=== PATIENT | male | born 1985 | race Caucasian/White ===

== ENCOUNTER 2017-03-30 11:41 | Emergency (ER) | payer SELFPAY ==
[~2017-03-30] VITALS: Ht 190.5 cm; Wt 84.0 kg
[2017-03-30 11:51] VITALS: BP 132/64; PULSE 105; RESP 20; TEMP 98.2; O2SAT 96
[2017-03-30] MEDS ORDERED: SODIUM CHLOR 0.9% 1000 ML INJ 1,000 ML IV ONE (11:52)
[2017-03-30] MEDS ORDERED: LORazepam 2 MG/ML VIAL IV PUSH ONE (12:00)
[2017-03-30] MEDS ORDERED: SODIUM CHLORIDE 0.9% FLUSH 10 ML FLUSH IVF PRN (12:00)
[2017-03-30 12:16] LABS: AUTOMATED NEUTROPHIL # 7.3 TH/MM3 (1.8-7.7); BASOPHIL # 0.1 TH/MM3 (0-0.2); BASOPHIL % 0.7 % (0.0-2.0); EOSINOPHIL % 0.4 % (0.0-4.0); HEMATOCRIT 44.2 % (39.0-51.0); HEMO FLAGS DIFF FINAL; LYMPH % 12.8 % (9.0-44.0); LYMPHOCYTE # 1.2 TH/MM3 (1.0-4.8); MEAN CELL VOLUME 99.9 FL (80.0-100.0); MEAN CORPUSCULAR HEMOGLOBIN 33.9 PG (27.0-34.0); MONO % 8.3 % (0.0-8.0); NEUT % 77.8 % (16.0-70.0); PLATELET COUNT 240 TH/MM3 (150-450); RED BLOOD COUNT 4.42 MIL/MM3 (4.50-5.90); RED CELL DISTRIBUTION WIDTH 12.6 % (11.6-17.2); WHITE BLOOD COUNT 9.4 TH/MM3 (4.0-11.0)
[2017-03-30] MEDS ORDERED: ADDE20 PO (12:19)
--- NOTE | 2017-03-30 12:20 | PD ---
HPI Chief Complaint: Seizure Time Seen by Provider: 11:50 Travel History International Travel<30 days: No Contact w/Intl Traveler<30days: No Traveled to known affect area: No History of Present Illness HPI Patient is a 31-year-old male presenting to the emergency department for evaluation after a witnessed seizure. Patient was at work, coworkers heard a thump and palpation on the floor actively seizing. The seizure lasted for approximately 45 seconds, when EMS arrived on scene patient was postictal and disoriented. Patient has a history of seizure disorder but it's been several years since this occurred. He reported that he felt off before the seizure occurred but otherwise had been feeling well. He denies any illicit drug use, he is not on any medications for the seizure. He denies any headache, chest pain, nausea, vomiting, abdominal pain at this time. [facility] Past Medical History ADHD: Yes Diminished Hearing: No Neurologic: Yes (TREMORS ON PROPANOLOL) Seizures: Yes Tetanus Vaccination: > 5 Years Influenza Vaccination: No Past Surgical History Other Surgery: Yes (RHINOPLASTY, R 5TH DIGIT REPAIR) Social History Alcohol Use: Yes (OCC) Tobacco Use: No Substance Use: No Allergies-Medications (Allergen,Severity, Reaction): Coded Allergies: Codeine (Verified Allergy, Severe, 03/30/17) Reported Meds & Prescriptions Reported Meds & Active Scripts Active Reported Adderall (Amphetamine-Dextroamphetamine) 20 Mg Tab 20 Mg PO DAILY Avoid late evening doses. Space doses at least 4 to 6 hours if more than once/day dosing. Review of Systems Except as stated in HPI: all other systems reviewed are Neg Cardiovascular: Positive: Tachycardia Neurologic: Positive: Seizures Physical Exam Narrative GENERAL: Well-developed, well-nourished, alert male. SKIN: Warm and dry. HEAD: Atraumatic. Normocephalic. EYES: Pupils equal and round. No scleral icterus. No injection or drainage. ENT: No nasal bleeding or discharge. Mucous membranes pink and moist. NECK: Trachea midline. No JVD. CARDIOVASCULAR: Tachycardic, no murmur noted RESPIRATORY: No accessory muscle use. Clear to auscultation. Breath sounds equal bilaterally. GASTROINTESTINAL: Abdomen soft, non-tender, nondistended. Hepatic and splenic margins not palpable. MUSCULOSKELETAL: Extremities without clubbing, cyanosis, or edema. No obvious deformities. NEUROLOGICAL: Awake and alert. No obvious cranial nerve deficits. Motor grossly within normal limits. Five out of 5 muscle strength in the arms and legs. Normal speech. PSYCHIATRIC: Appropriate mood and affect; insight and judgment normal. Data Data Last Documented VS Vital Signs Date Time Temp Pulse Resp B/P Pulse Ox O2 Delivery O2 Flow Rate FiO2 03/30/17 13:24 98.3 88 20 101/60 88 Orders Electrocardiogram (03/30/17 ) Complete Blood Count With Diff (03/30/17 11:52) Drug Screen, Random Urine (03/30/17 11:52) Electrocardiogram (03/30/17 ) Blood Glucose (03/30/17 11:52) Ecg Monitoring (03/30/17 11:52) Iv Access Insert/Monitor (03/30/17:52) Oximetry (03/30/17 11:52) Comprehensive Metabolic Panel (03/30/17 11:52) Sodium Chlor 0.9% 1000 Ml Inj (Ns 1000 M (03/30/17 11:52) Sodium Chloride 0.9% Flush (Ns Flush) (03/30/17 12:00) Urinalysis - C+S If Indicated (03/30/17 11:52) Lorazepam Inj (Ativan Inj) (03/30/17 12:00) Labs Laboratory Tests Test 03/30/17 03/30/17 12:00 13:05 White Blood Count 9.4 TH/MM3 Red Blood Count 4.42 MIL/MM3 Hemoglobin 15.0 GM/DL Hematocrit 44.2 % Mean Corpuscular Volume 99.9 FL Mean Corpuscular Hemoglobin 33.9 PG Mean Corpuscular Hemoglobin 34.0 % Concent Red Cell Distribution Width 12.6 % Platelet Count 240 TH/MM3 Mean Platelet Volume 9.3 FL Neutrophils (%) (Auto) 77.8 % Lymphocytes (%) (Auto) 12.8 % Monocytes (%) (Auto) 8.3 % Eosinophils (%) (Auto) 0.4 % Basophils (%) (Auto) 0.7 % Neutrophils # (Auto) 7.3 TH/MM3 Lymphocytes # (Auto) 1.2 TH/MM3 Monocytes # (Auto) 0.8 TH/MM3 Eosinophils # (Auto) 0.0 TH/MM3 Basophils # (Auto) 0.1 TH/MM3 CBC Comment DIFF FINAL Differential Comment Sodium Level 136 MEQ/L Potassium Level 4.7 MEQ/L Chloride Level 99 MEQ/L Carbon Dioxide Level 18.0 MEQ/L Anion Gap 19 MEQ/L Blood Urea Nitrogen 10 MG/DL Creatinine 1.29 MG/DL Estimat Glomerular Filtration 65 ML/MIN Rate Random Glucose 157 MG/DL Calcium Level 9.3 MG/DL Total Bilirubin 0.4 MG/DL Aspartate Amino Transf 96 U/L (AST/SGOT) Alanine Aminotransferase 151 U/L (ALT/SGPT) Alkaline Phosphatase 48 U/L Total Protein 8.4 GM/DL Albumin 4.5 GM/DL Urine Color YELLOW Urine Turbidity CLEAR Urine pH 6.5 Urine Specific [place] 1.016 Urine Protein 30 mg/dL Urine Glucose (UA) NEG mg/dL Urine Ketones 10 mg/dL Urine Occult Blood TRACE Urine Nitrite NEG Urine Bilirubin NEG Urine Urobilinogen LESS THAN 2.0 MG/DL Urine Leukocyte Esterase NEG Urine RBC LESS THAN 1 /hpf Urine WBC 1 /hpf Urine Squamous Epithelial <1 /hpf Cells Urine Hyaline Casts 9 /lpf Microscopic Urinalysis Comment CULT NOT INDICATED Urine Opiates Screen NEG Urine Barbiturates Screen NEG Urine Amphetamines Screen NEG Urine Benzodiazepines Screen NEG Urine Cocaine Screen NEG Urine Cannabinoids Screen POS MDM Medical Decision Making Medical Screen Exam Complete: Yes Emergency Medical Condition: Yes Interpretation(s) Vital Signs Date Time Temp Pulse Resp B/P Pulse Ox O2 Delivery O2 Flow Rate FiO2 03/30/17 13:24 98.3 88 20 101/60 88 03/30/17 11:51 98.2 105 20 132/64 96 Laboratory Tests Test 03/30/17 03/30/17 12:00 13:05 White Blood Count 9.4 TH/MM3 Red Blood Count 4.42 MIL/MM3 Hemoglobin 15.0 GM/DL Hematocrit 44.2 % Mean Corpuscular Volume 99.9 FL Mean Corpuscular Hemoglobin 33.9 PG Mean Corpuscular Hemoglobin 34.0 % Concent Red Cell Distribution Width 12.6 % Platelet Count 240 TH/MM3 Mean Platelet Volume 9.3 FL Neutrophils (%) (Auto) 77.8 % Lymphocytes (%) (Auto) 12.8 % Monocytes (%) (Auto) 8.3 % Eosinophils (%) (Auto) 0.4 % Basophils (%) (Auto) 0.7 % Neutrophils # (Auto) 7.3 TH/MM3 Lymphocytes # (Auto) 1.2 TH/MM3 Monocytes # (Auto) 0.8 TH/MM3 Eosinophils # (Auto) 0.0 TH/MM3 Basophils # (Auto) 0.1 TH/MM3 CBC Comment DIFF FINAL Differential Comment Sodium Level 136 MEQ/L Potassium Level 4.7 MEQ/L Chloride Level 99 MEQ/L Carbon Dioxide Level 18.0 MEQ/L Anion Gap 19 MEQ/L Blood Urea Nitrogen 10 MG/DL Creatinine 1.29 MG/DL Estimat Glomerular Filtration 65 ML/MIN Rate Random Glucose 157 MG/DL Calcium Level 9.3 MG/DL Total Bilirubin 0.4 MG/DL Aspartate Amino Transf 96 U/L (AST/SGOT) Alanine Aminotransferase 151 U/L (ALT/SGPT) Alkaline Phosphatase 48 U/L Total Protein 8.4 GM/DL Albumin 4.5 GM/DL Urine Color YELLOW Urine Turbidity CLEAR Urine pH 6.5 Urine Specific [place] 1.016 Urine Protein 30 mg/dL Urine Glucose (UA) NEG mg/dL Urine Ketones 10 mg/dL Urine Occult Blood TRACE Urine Nitrite NEG Urine Bilirubin NEG Urine Urobilinogen LESS THAN 2.0 MG/DL Urine Leukocyte Esterase NEG Urine RBC LESS THAN 1 /hpf Urine WBC 1 /hpf Urine Squamous Epithelial <1 /hpf Cells Urine Hyaline Casts 9 /lpf Microscopic Urinalysis Comment CULT NOT INDICATED Urine Opiates Screen NEG Urine Barbiturates Screen NEG Urine Amphetamines Screen NEG Urine Benzodiazepines Screen NEG Urine Cocaine Screen NEG Urine Cannabinoids Screen POS Vital Signs Date Time Temp Pulse Resp B/P Pulse Ox O2 Delivery O2 Flow Rate FiO2 03/30/17 11:51 98.2 105 20 132/64 96 Differential Diagnosis Seizure versus substance abuse versus N abnormality versus cardiac arrhythmia versus other Narrative Course Patient is a 31-year-old male that presented to emergency room for evaluation after witnessed seizure at work today. Patient has a remote history of seizure activity, he is not on any medications. Patient is postictal on arrival. Labs and imaging ordered and pending. Patient refused CT scan of the brain CBC is unremarkable, chemistries mild transaminitis, urine drug screen is positive for marijuana, urinalysis unremarkable. Patient is requesting a refill of propanolol which he is on for an essential tremor. She is neurologically intact, he is standing in the room, ambulating safely. Patient was advised to avoid driving, he was advised to follow-up with his primary doctor as well as a neurologist. He was encouraged to return to emergency department for any new or worsening symptoms. Patient verbalized understanding of instructions. Patient stable for discharge. Diagnosis Primary Impression: Seizure Additional Impression: Abnormal liver function test Referrals: Neurologist 2 days Patient Instructions: General Instructions, New-Onset Seizure in Adults (ED) Additional Instructions: Follow-up with a neurologist Follow-up with her primary care provider Avoid marijuana Do not drive for 6 months Your liver enzymes were elevated, I'll up with your primary care provider for further evaluation Return to emergency department for any new or worsening symptoms Med/Other Pt SpecificInfo: Prescription(s) given, No Change to Meds Scripts Propranolol 60 Mg Tab60 Mg PO DAILY #60 TAB Ref 0 Prov:Amy Burgos 03/30/17 Disposition: 01 DISCHARGE HOME Condition: Stable Amy Burgos Mar 30, 2017 12:20
[2017-03-30 13:05] LABS: CHLORIDE 99 MEQ/L (98-107); POTASSIUM 4.7 MEQ/L (3.5-5.1); SODIUM (NA) 136 MEQ/L (136-145)
[2017-03-30 13:06] LABS: ANION GAP 19 MEQ/L (5-15); BLOOD UREA NITROGEN 10 MG/DL (7-18)
[2017-03-30 13:07] LABS: ALT (GPT) 151 U/L (12-78); AST (GOT) 96 U/L (15-37); GLOMERULAR FILTRATION RATE 65 ML/MIN (>89); TOTAL BILIRUBIN ADULT 0.4 MG/DL (0.2-1.0)
[2017-03-30 13:08] LABS: ALKALINE PHOSPHATASE 48 U/L (45-117)
[2017-03-30 13:18] LABS: BLOOD, URINE TRACE (NEG); COMMENT (UR) CULT NOT INDICATED; CULTURE IF INDICATED CULT NOT INDICATED; GLUCOSE,URINE NEG (NEG); HYALINE CAST, URINE 9 /lpf (RARE); KETONE, URINE 10 mg/dL (NEG); NITRITE,URINE NEG (NEG); PH, URINE 6.5 (5.0-8.5); SQUAMOUS EPITHELIAL CELL URINE <1 /hpf (0-5); URINE COLOR YELLOW (YELLW/STRAW)
[2017-03-30 13:24] VITALS: BP 101/60; PULSE 88; RESP 20; TEMP 98.3; O2SAT 88
[2017-03-30 13:30] VITALS: RESP 20; O2SAT 98
[2017-03-30 14:01] LABS: AMPHETAMINE, URINE NEG (NEG); BARBITURATES, URINE NEG (NEG); COCAINE, URINE NEG (NEG)
[2017-03-30] MEDS ORDERED: PROP60TA PO (14:44)
[2017-03-30 15:01] VITALS: BP 112/65; PULSE 82; RESP 20; O2SAT 98
--- NOTE | 2017-04-01 11:16 | EKG ---
Date Performed: 03/30/2017 Time Performed: 11:53:50 PTAGE: 31 years EKG: SINUS TACHYCARDIA POSSIBLE RIGHT VENTRICULAR CONDUCTION DELAY ABNORMAL RHYTHM ECG NO PREVIOUS TRACING DOCTOR: Sadi Sanders Interpretating Date/Time 04/01/2017 11:07:31
== END 2017-03-30 15:03 | disposition home or self-care (01) ==
LOC: NEPC 11:41
DX: G40.909 Epilepsy, unspecified, not intractable, without status epilepticus (principal); R94.5 Abnormal results of liver function studies; R00.0 Tachycardia, unspecified; R94.31 Abnormal electrocardiogram [ECG] [EKG]; F90.9 Attention-deficit hyperactivity disorder, unspecified type; R25.1 Tremor, unspecified; Z79.899 Other long term (current) drug therapy; Z88.5 Allergy status to narcotic agent
CPT/HCPCS: 80053; 80307; 81001; 85025; 93005; 96361; 96374; 99284; J2060; J7030